=== PATIENT | female | born 1955 | race Caucasian/White ===

== ENCOUNTER 2016-12-16 11:05 | Emergency (ER) | payer BC ==
--- NOTE | 2016-12-16 12:36 | RAD ---
TWO VIEW CHEST: INDICATION: Fever. FINDINGS: Lungs are hyperinflated without consolidation, effusion, or pneumothorax. Cardiac silhouette is wit hin normal limits of size. IMPRESSION: No focal consolidation. POS: [facility]
== END 2016-12-16 12:11 | disposition home or self-care (01) ==
LOC: SCSER 11:05
DX: J06.9 Acute upper respiratory infection, unspecified (principal); G40.909 Epilepsy, unspecified, not intractable, without status epilepticus; F20.9 Schizophrenia, unspecified; Z79.899 Other long term (current) drug therapy
CPT/HCPCS: 71020

== ENCOUNTER 2024-01-17 10:40 | Outpatient (CLI) | payer MEDICARE | END 2024-01-17 10:41 | disposition home or self-care (01) | LOC: SCSRAD 10:40 | PROVIDERS: ATTEND Internal Medicine | DX: M54.6 Pain in thoracic spine (principal); M43.8X4 Other specified deforming dorsopathies, thoracic region; Z87.828 Personal history of other (healed) physical injury and trauma; W19.XXXA Unspecified fall, initial encounter | CPT/HCPCS: 72072 ==